=== PATIENT | female | born 1970 | race Caucasian/White ===

== ENCOUNTER 2020-11-10 05:17 | Outpatient (CLI) | payer BC, SELFPAY ==
[2020-11-10 10:13] LABS: Hemoglobin A1C 5.9 % (<5.7)
[2020-11-10 10:50] LABS: ESR 28 mm/hr (0-30)
[2020-11-10 11:08] LABS: C-Reactive Protein 0.71 mg/dL (0.0-0.3); FREE T4 0.81 ng/dL (0.76-1.46); Magnesium 2.2 mg/dL (1.8-2.4); TSH 2.06 uIU/mL (0.36-3.74)
[2020-11-10 11:20] LABS: T4 6.3 ug/mL (4.7-13.3)
[2020-11-10 17:50] LABS: Thyroperoxidase Antibody <28 U/mL (<=60)
[2020-11-10 19:12] LABS: Rheumatoid Factor <8.6 IU/mL (<12.0)
[2020-11-10 19:25] LABS: T3,Free 3.5 pg/mL (2.8-5.3)
[2020-11-11 13:39] LABS: ANA Interpretation Positive (Negative); ANA Titer Pattern 1:80 Homogeneous
[2020-11-11 15:54] LABS: dsDNA Ab, IgG <12.3 IU/mL (<30.0)
[2020-11-12 09:11] LABS: Homocysteine 7.6 umol/L (5.0-13.9)
[2020-11-13 09:25] LABS: Insulin 10.1 uIU/mL (<29.0)
[2020-11-14 09:52] LABS: 25-Hydroxy D Total 49 ng/mL; 25-Hydroxy D2 <4.0 ng/mL; 25-Hydroxy D3 49 ng/mL
[2020-11-14 17:21] LABS: Histamine Plasma 0.26 ng/mL (0-1.0)
== END 2020-11-10 05:37 ==
PROVIDERS: PCP Registered Nurse; Visit Provider Naturopath
DX: R51.9 Headache, unspecified (principal); M25.59 Pain in other specified joint; R63.5 Abnormal weight gain; R73.03 Prediabetes; E55.9 Vitamin D deficiency, unspecified; E72.12 Methylenetetrahydrofolate reductase deficiency
CPT/HCPCS: 36415; 82306; 83090; 85652; 83036; 83088; 83525; 83735; 84432; 84436; 84439; 84443; 84481; 86038; 86140; 86225; 86235; 86376; 86431; 86800

== ENCOUNTER 2021-01-26 04:22 | Outpatient (CLI) | payer BC, SELFPAY ==
[2021-01-26 15:18] LABS: HCT 36.4 % (36.0-46.0); HGB 11.8 g/dL (11.2-15.7); MCH 29.7 pg (27.0-33.0); MCHC 32.4 % (32.0-36.0); MCV 91.7 fL (80-95); Platelet Count 362 10^3/uL (130-400); RBC 3.97 10^6/uL (3.93-5.22); RDW-SD 47.1 fL; WBC 9.26 10^3/uL (4.4-10.8)
[2021-01-26 16:24] LABS: ALT 29 U/L (14-59); AST 16 U/L (15-37); Albumin 3.6 g/dL (3.4-5.0); Alkaline Phosphatase 88 U/L (46-116); Anion Gap 9.2 mmol/L (3-11); BUN 15 mg/dL (7-18); Bilirubin, Total 0.1 mg/dL (0.2-1.0); CO2 26.8 mmol/L (21.0-32.0); CREATININE 0.8 mg/dL (0.55-1.02); Calcium 9.8 mg/dL (8.5-10.1); Chloride 103 mmol/L (98-107); Glucose 100 mg/dL (74-106); Potassium 4.1 mmol/L (3.5-5.1); Sodium 139 mmol/L (136-145)
[2021-01-26 22:04] LABS: Thyroglobulin Antibody 22 U/mL (<=60)
[2021-01-27 09:47] LABS: Parathyroid Hormone,Intact 76 pg/mL (19-88)
[2021-02-04 11:16] LABS: Misc Referral (MAYO) See Comments
== END 2021-01-26 04:23 | disposition home or self-care (01) ==
LOC: LBO 04:22
PROVIDERS: PCP Registered Nurse; Visit Provider Naturopath
DX: E21.5 Disorder of parathyroid gland, unspecified (principal); R51.9 Headache, unspecified; M25.59 Pain in other specified joint; R63.5 Abnormal weight gain; R73.03 Prediabetes; E55.9 Vitamin D deficiency, unspecified; E72.12 Methylenetetrahydrofolate reductase deficiency
CPT/HCPCS: 36415; 80053; 83519; 85027; 83970; 86800